=== PATIENT | female | born 1975 | race African-American/Black ===

== ENCOUNTER 2021-02-21 18:44 | Emergency (ER) | payer OTHER, SELFPAY ==
[2021-02-21 18:57] VITALS: BP 138/98; PULSE 82; RESP 16; TEMP 36.3; O2SAT 99
--- NOTE | 2021-02-21 19:22 | ED.LOWEXIN ---
HPI - Extremity Injury (Lower) General Chief Complaint: Extremity Injury, Lower Stated Complaint: right knee Source: patient and RN notes reviewed Limitations: no limitations History of Present Illness HPI Narrative: The morbid obese patient, previously mostly healthy, presents with right knee pain. 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 No give way, lockup, effusion, calf pain [it is mostly anterior with popliteal] Related Data Home Medications Medication Instructions Recorded Confirmed pantoprazole 40 mg PO DAILY 02/21/21 02/21/21 Allergies Allergy/AdvReac Type Severity Reaction Status Date / Time No Known Allergies Allergy Unverified 02/21/21 18:57 Review of Systems Review of Systems: The patient has been informed that they may have pre-hypertension or Hypertension based on a BP reading in the department. I recommend that the patient call the primary care provider listed on their discharge instructions or a physician of their choice this week to arrange follow up for further evaluation of possible pre-hypertension or Hypertension General/Constitutional: No weight loss,fever Eyes: N0: Redness,discharge Ears/Nose/Throat: No: Epistaxis,ear discharge Respiratory: Denies: Hemoptysis Gastrointestinal: No Vomiting, Bleeding-rectal Skin: No Lumps, eruption Neurologic: No Focal Weakness,Sz Hematologic: Denies: Petechiae/Purpura Psychiatric: No: Suicida ideationl All Other Systems: Reviewed and Negative PMFSH Comments At time of signature, agree with nursing past medical, surgical, social and family history. There is no relevant family history pertinent to the presenting complaint Exam Narrative: General Appearance: Obese/well nourished, conjunctiva clear Mouth/Throat: Normal appearing, Normal lips, supple Respiratory: Airway patent, No respiratory distress MS-knee: Nl strength (mostly intact, limited flexion/extension by pain), Tenderness (anterior patellar and prox medial gastroc, with mild decreased ROM), Swelling Other (no anterior drawer, no collateral laxity, unable to do Carli, no patellar apprehension) Skin: Warm, Dry, Normal color Neurological: A&O x3, Normal affect Course Vital Signs Vital signs: Vital Signs Temperature 97.4 F L 02/21/21 18:57 Pulse Rate 82 02/21/21 18:57 Respiratory Rate 16 02/21/21 18:57 Blood Pressure 138/98 H 02/21/21 18:57 Pulse Oximetry 99 02/21/21 18:57 Temperature 97.4 F L 02/21/21 18:57 Pulse Rate 82 02/21/21 18:57 Respiratory Rate 16 02/21/21 18:57 Blood Pressure 138/98 H 02/21/21 18:57 Pulse Oximetry 99 02/21/21 18:57 Discharge Plan Discharge Clinical Impression: Internal derangement of knee, acute Qualifiers: Laterality: right Qualified Code(s): M23.91 - Unspecified internal derangement of right knee Patient Disposition: Home, Self-Care Condition: Stable Instructions: Knee Sprain (ED) Additional Instructions: You may take OTC pain medicines like Motrin, or Aleve also with these Try therapy exercises [provided] Go to hospital/higher level care if concerned about blood clot Prescriptions: New tramadol 50 mg tablet 50 - 75 mg PO Q6H PRN (Reason: pain) Qty: 30 RF: 0 prednisone 20 mg tablet 60 mg PO DAILY Qty: 9 RF: 0 No Action pantoprazole 40 mg tablet,delayed release (DR/EC) 40 mg PO DAILY RF: 0 Follow-up/Referrals: UNKNOWN,DOCTOR [Primary Care Provider] -
== END 2021-02-21 19:38 | disposition home or self-care (01) ==
PROVIDERS: Emergency Provider Emergency Medicine
DX: M23.90 Unspecified internal derangement of unspecified knee (principal); Z98.84 Bariatric surgery status; K21.9 Gastro-esophageal reflux disease without esophagitis
CPT/HCPCS: 99213; G0463